=== PATIENT | female | born 1955 | race Caucasian/White ===

== ENCOUNTER 2015-12-27 14:41 | Outpatient (RCR) | payer BC, OTHER ==
[~2015-12-27] VITALS: Ht 165.1 cm; Wt 106.6 kg
[~2015-12-27 14:41] MED LIST: CHOL100011 PO; DULA0.75 SQ; EXEN10PE4 SQ; LOSA50TA6 PO; MTF500T PO; NIA500ERT PO; PARO40TA47 PO; SIMV40TA2 PO; SITA1TAB2 PO; cinnamon
--- OUTSIDE RECORDS SUMMARY | 2015-12-27 14:45 | XMS REPORT | Continuity of Care Document ---
Author Author [facility] Organization [facility] Address Unknown Phone Unavailable Care Team Providers Care Volcanology Teacher Name Role Phone Cynthia Reza PCP [phone] Source Comments Some departments are not documenting in the electronic medical record. If you do not see the information that you expected, contact Release of Information in the Health Information Management department at [phone] for further assistance in locating additional records.[facility] Active Allergies and Adverse Reactions Allergen Noted Date Severity Reactions Comments Fish Oil 11/15/2011 UNKNOWN Sulfa (Sulfonamide 11/15/2011 UNKNOWN Antibiotics) Current Medications Prescription Sig. Disp. Refills Start End Date Status Date metFORMIN (GLUCOPHAGE) Take 500 mg by mouth Active 500 mg tablet twice daily with meals. losartan/hydrochlorothiaz Take 1 Tab by mouth Active amira (HYZAAR) 50/12.5 mg daily. tablet 1 Tab simvastatin (ZOCOR) 40 mg Take 40 mg by mouth at Active tablet bedtime daily. levothyroxine (SYNTHROID) Take 88 mcg by mouth Active 88 mcg tablet daily. PARoxetine (PAXIL) 40 mg Take 40 mg by mouth Active tablet daily. levothyroxine (SYNTHROID) Take 100 mcg by mouth Active 100 mcg tablet daily. topiramate (TOPAMAX) 25 Take 25 mg by mouth Active mg tablet daily. glyBURIDE (DIABETA) 2.5 Take 2.5 mg by mouth Active mg tablet twice daily. Active Problems Problem Noted Date Hypothyroidism 11/20/2011 Overview: At presentation to clinic in 11/2011 LT4 dose 88 mcg 12/2011 - LT4 dose increased to 100 mcg daily Thyroid nodule 11/20/2011 Overview: Formatting of this note may be different from the original. 16 years old she had open biopsy of her thyroid for thyroid cancer and was negative. Ultrasound about 3 months ago which showed a subcentimeter nodule and otherwise had some very small nodules. Repeat ultrasound showed a similar nodule of 0.6 x 0.5 cm hyperechoic smooth nodule with some increase in vascularity. Fine-needle biopsy - original biopsy was inconclusive. Notes Recorded by Mili Lee MD on 12/11/2011 at 2:39 PM FNA was benign, plan to repeat US in one year to see if there're changes in the size. Social History Tobacco Use Types Packs/Day Years Used Date Never Smoker Tobacco Cessation: Counseling Given: No Comments: Alcohol Use Drinks/Week oz/Week Comments No Last Filed Vital Signs Vital Sign Reading Time Taken Blood Pressure 109/78 05/16/2012 12:46 PM CDT Pulse 101 05/16/2012 12:46 PM CDT Temperature - - Respiratory Rate - - Height 1.651 m (5' 5") 05/16/2012 12:46 PM CDT Weight 110.678 kg (244 lb) 05/16/2012 12:46 PM CDT Body Mass Index 40.6 05/16/2012 12:46 PM CDT Oxygen Saturation - - Plan of Care Health Maintenance Due Date Last Done Comments Physical (Comprehensive) 1960 Exam Pertussis Vaccine 1964 Tetanus Vaccine 1970 Cervical Cancer Screening 1974 Breast Cancer Screening 1993 Colorectal Cancer 07/20/2003 Screening Shingles Vaccine 2013 Influenza Vaccine 11/04/2015 Results from Last 3 Months Not on file
== END 2016-03-26 | disposition home or self-care (01) ==
LOC: DSME 14:41
PROVIDERS: ATTEND Nurse Practitioner Family
DX: E11.65 Type 2 diabetes mellitus with hyperglycemia (principal); I10 Essential (primary) hypertension

== ENCOUNTER 2016-03-13 08:00 | Outpatient (RCR) | payer BC ==
--- OUTSIDE RECORDS SUMMARY | 2016-04-27 12:22 | XMS REPORT | Continuity of Care Document ---
Author Author [facility] Organization [facility] Address Unknown Phone Unavailable Care Team Providers Care Hop Sorter Name Role Phone Cynthia Reza PCP [phone] Source Comments Some departments are not documenting in the electronic medical record. If you do not see the information that you expected, contact Release of Information in the Health Information Management department at [phone] for further assistance in locating additional records.[facility] Active Allergies and Adverse Reactions Allergen Noted [...]
== END 2016-06-11 | disposition home or self-care (01) ==
LOC: DSME 08:00
PROVIDERS: ATTEND Nurse Practitioner Family
DX: E11.65 Type 2 diabetes mellitus with hyperglycemia (principal); I10 Essential (primary) hypertension

== ENCOUNTER 2017-05-24 10:01 | Emergency (ER) | payer OTHER, BC ==
[~2017-05-24] VITALS: Ht 165.1 cm; Wt 97.1 kg
--- NOTE | 2017-05-24 11:01 | ED Head Injury ---
General Chief Complaint: Head/Cervical Problems Stated Complaint: FALL,HIT HEAD Nursing Triage Note: pt was accompanied to waiting room of ed by resident services supervisor from work. pt ambulated to rm 5 w/o difficulty. pt stated at approximately 0900 she slipped on wet floor at work and fell to her knees and then hit back of head on concrete wall. c/o of nausea, and dizziness at this time. denies amador at this time History of Present Illness Date Seen by Provider: May 24, 2017 Time Seen by Provider: 10:59 Initial Comments Patient is a 61-year-old female who presents to the emergency room with complaints of left knee pain and head and neck pain after slipping and water and falling at work today. Patient reports she slipped and fell onto her left knee and then fell backwards and hit the back of her head on a wall. Patient denies LOC, reports nausea and dizziness and headache. Occurred: just prior to arrival Location: occipital Method of Injury: fell Associated Systoms: Denies Symptoms Allergies and Home Medications Allergies Coded Allergies: Sulfa (Sulfonamide Antibiotics) (Unverified Allergy, Unknown, 10/15/15) fish oil (Unverified Allergy, Unknown, 10/15/15) Home Medications Cholecalciferol 1,000 Unit Capsule, 1,000 UNIT PO bid, (Reported) Dulaglutide 0.75 Mg/0.5 Ml Pen.injctr, 0.75 MG SQ DAILY Prescribed by: HOMERO NICHOLSON on 10/15/15 1506 Losartan Potassium 50 Mg Tablet, 50 MG PO daily, (Reported) Metformin Hcl 500 Mg Tablet, 1 EACH PO BID WITH MEALS, (Reported) Niacin 500 Mg Tablet.sa, 500 MG PO DAILY, (Reported) Paroxetine Hcl 40 Mg Tablet, 40 MG PO daily, (Reported) Simvastatin 40 Mg Tablet, 40 MG PO DAILY, (Reported) Sitagliptin Phos/Metformin Hcl 1 Each Tablet, 1 EACH PO BID WITH MEALS, ( Reported) Patient Home Medication List Home Medication List Reviewed: Yes Constitutional: no symptoms reported, see HPI Eyes: No Symptoms Reported, See HPI Ears, Nose, Mouth, Throat: no symptoms reported, see HPI Respiratory: no symptoms reported, see HPI Cardiovascular: no symptoms reported, see HPI Gastrointestinal: no symptoms reported, see HPI Genitourinary: no symptoms reported, see HPI Musculoskeletal: no symptoms reported, see HPI Skin: no symptoms reported, see HPI Psychiatric/Neurological: No Symptoms Reported, See HPI Endocrine: No Symptoms Reported, See HPI Hematologic/Lymphatic: No Symptoms Reported, See HPI Past Vssdjqi-Vfjicu-Wzrlfl Hx Patient Social History Alcohol Use: Denies Use Recreational Drug Use: No Smoking Status: Never a Smoker 2nd Hand Smoke Exposure: No Recent Foreign Travel: No Contact w/Someone Who Travel: No Recent Infectious Disease Expo: No Recent Hopitalizations: No Physical Abuse: No Sexual Abuse: No Immunizations Up To Date Tetanus Booster (TDap): Unknown Seasonal Allergies Seasonal Allergies: No Surgeries History of Surgeries: Yes (pt stated she has had total knee/hip replacement on r side) Surgeries: Orthopedic Respiratory History of Respiratory Disorde: No Cardiovascular History of Cardiac Disorders: No Neurological History of Neurological Disord: Yes (in 20's) Neurological Disorders: Concussion Reproductive System Hx Reproductive Disorders: No Gastrointestinal History of Gastrointestinal Di: No Musculoskeletal History of Musculoskeletal Dis: No Endocrine History of Endocrine Disorders: Yes Endocrine Disorders: Hypothyroidsim, Diabetes, Non-Insulin dep HEENT History of HEENT Disorders: No Cancer History of Cancer: No Psychosocial History of Psychiatric Problem: Yes Behavioral Health Disorders: Depression Suicide Risk Score: 0 Integumentary History of Skin or Integumenta: No Blood Transfusions History of Blood Disorders: No Adverse Reaction to a Blood Tr: No Physical Exam Vital Signs Vital Signs - First Documented 05/24/17 10:10 Temp 98.2 Pulse 89 Resp 16 B/P (MAP) 112/74 (87) Pulse Ox 96 O2 Delivery Room Air Capillary Refill : Less Than 3 Seconds General Appearance: WD/WN, no apparent distress HEENT: PERRL/EOMI, normal ENT inspection, TMs normal Neck: non-tender, full range of motion, normal inspection Cardiovascular: normal peripheral pulses, regular rate, rhythm, no edema, no gallop, no JVD, no murmur Respiratory: chest non-tender, lungs clear, normal breath sounds, no respiratory distress, no accessory muscle use Gastrointestinal: normal bowel sounds, non tender Back: normal inspection, no CVA tenderness, no vertebral tenderness Extremities: normal range of motion, non-tender, normal inspection, no pedal edema, no calf tenderness Psychiatric: alert, oriented x 3 Crainal Nerves: normal hearing, normal speech Coordination/Gait: normal finger to nose Skin: normal color, warm/dry Lymphatic: no adenopathy Progress/Results/Core Measures Results/Orders Lab Results Laboratory Tests Test 05/24/17 11:45 Range/Units Glucometer 117 H 70-110 MG/DL My Orders Orders - VKIASH LANDRY APRN Ct Head/Cervical Spine Wo (05/24/17 11:01) Accucheck Stat ONCE (05/24/17 11:01) Acetaminophen Tablet (Tylenol Tablet) (05/24/17 12:00) Medications Given in ED Current Medications Medications Dose Ordered Sig/Matteo Route Start Time Stop Time Status Last Admin Dose Admin Acetaminophen 1,000 mg ONCE ONCE PO 05/24/17 12:00 05/24/17 12:01 DC 05/24/17 12:03 1,000 MG Vital Signs/I&O Vital Sign - Last 12Hours 05/24/17 10:10 Temp 98.2 Pulse 89 Resp 16 B/P (MAP) 112/74 (87) Pulse Ox 96 O2 Delivery Room Air Blood Pressure Mean: 87 Diagnostic Imaging Diagonstic Imaging: CT Plain Films/CT/US/NM/MRI: c-spine, head Comments NAME: MISTY NICHOLSON [facility] REC#: [id number] PT STATUS: REG ER : 1955 PHYSICIAN: VIKASH LANDRY APRN ADMIT DATE: 05/24/17/ER Draft Date of Exam:05/24/17 CT HEAD/CERVICAL SPINE WO CLINICAL INDICATION: Patient is status post fall and hit posterior aspect of head. Patient has headache and neck stiffness. EXAM: Head CT without IV contrast. Axial CT scan of the cervical spine with sagittal and coronal reformations. COMPARISON: None. FINDINGS: HEAD CT: There is no evidence of acute cerebral infarct, intracranial hemorrhage, or gross mass effect. The brain parenchymal volume appears appropriate for patient's age. There is normal valenzuela-white matter distinction. There is no significant midline shift or herniation. There is no evidence of hydrocephalus. The basal cisterns are unremarkable. The skull, extracranial soft tissue, and orbits are unremarkable. There is minimal mucosal thickening on the floor of the right maxillary sinus. Temporal bones show no significant abnormality. CERVICAL SPINE: There is no acute cervical spine fracture or dislocation. There are hypertrophic vertebral body spurs seen throughout, most pronounced at C5-C6 and C6-C7 levels. There is moderate to severe loss of intervertebral disc height, bilateral uncinate spurs and hypertrophic disc spurs at the C5-C6 and C6-C7 levels. There is at least moderate bilateral C5-C6 bony neuroforaminal narrowing and at least moderate right C4-C5 and C6-C7 neuroforaminal narrowing. There is at least mild central canal narrowing seen at the C5-C6 and C6-C7 levels. The visualized upper lung doss are clear. The neck soft tissue structures show no significant abnormality. IMPRESSION: 1: There is no acute intracranial process. 2: There is multilevel cervical spine degenerative disease with no acute cervical spine fracture or dislocation. Dictated on workstation # [id number] Dict: 05/24/17 1206 Trans: 05/24/[address] [facility] [phone] Interpreted by: CRISTIANO GEORGES MD Electronically signed by: Departure Impression Impression: Primary Impression: Concussion without loss of consciousness Disposition: 01 HOME, SELF-CARE Condition: Stable/Unchanged Departure-Patient Inst. Decision time for Depature: 11:44 Referrals: ADRIANNA TEMPLETON MD (PCP/Family) Primary Care Physician Patient Instructions: Concussion, Adult (DC), [facility]. Add. Discharge Instructions: Follow up with your physician within 1 week for a recheck. Return back to the emergency room for worsened symptoms such as increased headache, nausea, vomiting, or any other concerns as needed. All discharge instructions reviewed with patient and/or family. Voiced understanding. Work/School Note: Work Release Form Date Seen in the Emergency Department: May 24, 2017 Return to Work: May 28, 2017 Restrictions: No Restrictions VIKASH LANDRY APRN May 24, 2017 11:01
[2017-05-24] MEDS ORDERED: ACETAMINOPHEN 500 MG TAB (TYLENOL) PO ONE (12:00)
--- NOTE | 2017-05-24 12:16 | Diagnostic Imaging Report ---
CLINICAL INDICATION: Patient is status post fall and hit posterior aspect of head. Patient has headache and neck stiffness. EXAM: Head CT without IV contrast. Axial CT scan of the cervical spine with sagittal and coronal reformations. COMPARISON: None. FINDINGS: HEAD CT: There is no evidence of acute cerebral infarct, intracranial hemorrhage, or gross mass effect. The brain parenchymal volume appears appropriate for patient's age. There is normal vaelnzuela-white matter distinction. There is no significant midline shift or herniation. There is no evidence of hydrocephalus. The basal cisterns are unremarkable. The skull, extracranial soft tissue, and orbits are unremarkable. There is minimal mucosal thickening on the floor of the right maxillary sinus. Temporal bones show no significant abnormality. CERVICAL SPINE: There is no acute cervical spine fracture or dislocation. There are hypertrophic vertebral body spurs seen throughout, most pronounced at C5-C6 and C6-C7 levels. There is moderate to severe loss of intervertebral disc height, bilateral uncinate spurs and hypertrophic disc spurs at the C5-C6 and C6-C7 levels. There is at least moderate bilateral C5-C6 bony neuroforaminal narrowing and at least moderate right C4-C5 and C6-C7 neuroforaminal narrowing. There is at least mild central canal narrowing seen at the C5-C6 and C6-C7 levels. The visualized upper lung doss are clear. The neck soft tissue structures show no significant abnormality. IMPRESSION: 1: There is no acute intracranial process. 2: There is multilevel cervical spine degenerative disease with no acute cervical spine fracture or dislocation. Dictated by: Dictated on workstation # [id number]
[2017-05-24 12:35] VITALS: BP 110/74
== END 2017-05-24 12:35 | disposition home or self-care (01) ==
LOC: EDUNIT# 10:01 → ER 10:03
DX: S06.0X0A Concussion without loss of consciousness, initial encounter (principal); E03.9 Hypothyroidism, unspecified; E11.9 Type 2 diabetes mellitus without complications; F32.9 Major depressive disorder, single episode, unspecified; Z88.2 Allergy status to sulfonamides; Z79.84 Long term (current) use of oral hypoglycemic drugs; Z96.651 Presence of right artificial knee joint; Z96.641 Presence of right artificial hip joint; W01.198A Fall on same level from slipping, tripping and stumbling with subsequent striking against other object, initial encounter; Y92.89 Other specified places as the place of occurrence of the external cause
CPT/HCPCS: 70450; 72125; 82962

== ENCOUNTER → 2018-11-25 | Outpatient (CLI) | payer BC, OTHER ==
[2018-11-25 10:16] LABS: BASOPHILS % (AUTO) 0 % (0-10); EOSINOPHILS # (AUTO) 0.1 10^3/uL (0.0-0.3); EOSINOPHILS % (AUTO) 1 % (0-10); HEMATOCRIT 38 % (35-52); HEMOGLOBIN 12.1 G/DL (11.5-16.0); LYMPHOCYTES % (AUTO) 8 % (12-44); MEAN CORPUSCULAR HEMOGLOBIN 26 PG (25-34); MEAN CORPUSCULAR HGB CONC 32 G/DL (32-36); MEAN CORPUSCULAR VOLUME 83 FL (80-99); MEAN PLATELET VOLUME 9.7 FL (7.4-10.4); MONOCYTES % (AUTO) 7 % (0-12); NEUTROPHILS # (AUTO) 10.9 X 10^3 (1.8-7.8); NEUTROPHILS % (AUTO) 84 % (42-75); PLATELET COUNT 336 10^3/uL (130-400); RED CELL DISTRIBUTION WIDTH 15.4 % (10.0-14.5); WHITE BLOOD COUNT 12.9 10^3/uL (4.3-11.0)
[2018-11-25 10:36] LABS: ALANINE AMINOTRANSFERASE 20 U/L (0-55); ALBUMIN 4.2 GM/DL (3.2-4.5); ALKALINE PHOSPHATASE 111 U/L (40-136); BILIRUBIN,TOTAL 0.7 MG/DL (0.1-1.0); BUN/CREATININE RATIO 18; CALCIUM 9.7 MG/DL (8.5-10.1); CARBON DIOXIDE 22 MMOL/L (21-32); CHLORIDE 106 MMOL/L (98-107); CREATINE KINASE 38 U/L (29-168); CREATININE SERUM 0.77 MG/DL (0.60-1.30); GFR ESTIMATED > 60; GLUCOSE 139 MG/DL (70-105); SODIUM 141 MMOL/L (135-145); TOTAL PROTEIN 7.5 GM/DL (6.4-8.2)
[2018-11-25 10:43] LABS: BAND NEUTROPHILS 0 %; BASOPHILS % (MANUAL) 0 %; EOSINOPHILS % (MANUAL) 0 %; LYMPHOCYTES % (MANUAL) 8 %; MONOCYTES % (MANUAL) 5 %; NEUTROPHILS % (MANUAL) 87 %; RBC MORPH NORMAL
== END ==
LOC: CARD 09:52
PROVIDERS: ATTEND Nurse Practitioner Family
DX: R07.9 Chest pain, unspecified (principal); R05 Cough
CPT/HCPCS: 36415; 80053; 82550; 84484; 85007; 85027; 87804; 93005

== ENCOUNTER → 2019-11-04 | Outpatient (CLI) | payer BC | LOC: LABNPT 05:27 | PROVIDERS: ATTEND Family Medicine | DX: R68.83 Chills (without fever) (principal); R11.10 Vomiting, unspecified; R51 Headache; Z53.8 Procedure and treatment not carried out for other reasons ==